=== PATIENT | male | born 1975 | race Caucasian/White ===

== ENCOUNTER 2017-12-26 10:10 | Emergency (ER) | payer MEDICARE, MEDICAID ==
[2017-12-26] MEDS ORDERED: Lorazepam 1 MG TAB ONE (10:48)
--- NOTE | 2017-12-26 11:18 | RAD ---
CHEST 1 VIEW: HISTORY: Tightness. Pain. COMPARISON: 12/28/14. FINDINGS: Normal cardiac silhouette. The lungs and pleural spaces are clear. No pneumothorax or osseous abnor malities. IMPRESSION: No acute cardiopulmonary process. POS: RUBY
[2017-12-26 11:19] LABS: #Basophils 0.1 thou/uL (0.0-0.2); #Eosinphils 0.1 thou/uL (0.0-0.7); #Lymphocytes 2.4 thou/uL (1.20-3.40); #Monocytes 0.9 thou/uL (0.11-0.59); #Neutrophils 4.1 thou/uL (1.40-6.50); %Basophils 1.1 % (0.0-1.0); %Eosinophils 0.9 % (0.0-10.0); %Lymphocytes 31.8 % (21.0-51.0); %Monocytes 11.9 % (0.0-10.0); %Neutrophils 54.3 % (42.0-75.0); Hemoglobin 15.1 g/dL (14.0-18.0); Mean Corpuscular HGB CONC 35.6 g/dL (32.0-36.0); Mean Corpuscular Hemoglobin 31.9 pg (27.0-31.0); Mean Corpuscular Volume 89.5 fL (78.0-98.0); Mean Platelet Volume 7.2 fL (7.4-10.4); Platelet Count 252 thou/uL (130-400); RBC Distribution Width 11.6 % (11.5-14.5); Red Blood Cell (RBC) Count 4.73 mill/uL (4.70-6.10); White Blood Cell (WBC) Count 7.5 thou/uL (4.8-10.8)
[2017-12-26 11:30] LABS: ALT (SGPT) 37 U/L (8-55); AST (SGOT) 19 U/L (5-34); Albumin 4.8 g/dL (3.5-5.0); Alkaline Phosphatase 47 U/L (40-150); Anion Gap 14 mmol/L (10-20); BUN (Urea Nitrogen) 13 mg/dL (8.9-20.6); Bilirubin, Total 0.3 mg/dL (0.2-1.2); Calc. Creatinine Clearance 0 mL/min (70-130); Calcium 10.1 mg/dL (7.8-10.44); Carbon Dioxide 26 mmol/L (22-29); Chloride 102 mmol/L (98-107); Estimated GFR-MDRD 88; Globulin 2.4 g/dL (2.4-3.5); Glucose 106 mg/dL (70-105); Potassium 3.9 mmol/L (3.5-5.1); Protein, Total 7.2 g/dL (6.0-8.3); Sodium 138 mmol/L (136-145)
[2017-12-26 11:33] LABS: CKMB 0.6 ng/mL (0-6.6); Troponin I Less than 0.010 ng/mL (< 0.028)
== END 2017-12-26 12:48 | disposition home or self-care (01) ==
LOC: ERS 10:10
DX: F41.9 Anxiety disorder, unspecified (principal); R00.2 Palpitations; I10 Essential (primary) hypertension; F31.9 Bipolar disorder, unspecified; F17.210 Nicotine dependence, cigarettes, uncomplicated; Z79.899 Other long term (current) drug therapy
CPT/HCPCS: 36415; 71045; 80053; 82553; 84484; 85025; 93005

== ENCOUNTER 2018-07-13 14:20 | Outpatient (CLI) | payer MEDICARE, MEDICAID ==
--- NOTE | 2018-07-13 18:20 | MRI ---
MRI CERVICAL SPINE WITHOUT CONTRAST: 07/13/18 Multiplanar and multisequential imaging cervical spine obtained. INDICATIONS: Neck pain. Strained a muscle/tendon in the neck. FINDINGS: The cervical vertebrae maintain normal height and alignment. Disc spaces are maintained. Very mild de generative spurring from the anterior vertebrae. No significant disc bulge or spondylosis seen at C2- 3 or C3-4. At C4-5, minimal disc bulge flattens the thecal sac and mildly effaces the anterior subarachnoid spac e. At C5-6, minimal disc bulge flattens the thecal sac and minimally effaces the anterior subarachnoid s pace. At C6-7, there is a more prominent diffuse disc bulge more pronounced to the left which severely fla ttens the anterior subarachnoid space. No significant cord impingement although there is left foramin al encroachment. Probable contact with both right and left traversing nerve roots. IMPRESSION: Broad based disc bulge at C6-7 severely effaces the anterior subarachnoid space and encroaches into t he left foramina. POS: TPC
== END 2018-07-13 14:21 | disposition home or self-care (01) ==
LOC: BICMRI 14:20
PROVIDERS: ATTEND Family Medicine
DX: S16.1XXA Strain of muscle, fascia and tendon at neck level, initial encounter (principal); M50.923 Unspecified cervical disc disorder at C6-C7 level
CPT/HCPCS: 72141

== ENCOUNTER 2020-02-23 09:35 | Outpatient (CLI) | payer MEDICARE, MEDICAID ==
--- NOTE | 2020-02-23 09:56 | RAD ---
EXAM: XR Cervical Spine 4 View Min PROVIDED CLINICAL HISTORY: Cervical radiculopathy. Patient states numbness and pain down left arm. COMPARISON: None FINDINGS: C1 to the cervicothoracic junction is seen on the lateral view. Vertebral body heights are within nor mal limits. There is minimal narrowing of the C6-7 intervertebral disc space. Osteophytes are seen involving the lower cervical spine. Straightening of the normal cervical lordotic curvature is presen t. No fracture or subluxation is seen. No abnormal translational motion is seen between the flexion and extension views cervical spine. The prevertebral soft tissues are within normal limits. IMPRESSION: Degenerative changes in the cervical spine greatest involving the lower cervical spine. No fracture o r subluxation is identified.
== END 2020-02-23 09:36 | disposition home or self-care (01) ==
LOC: BICRAD 09:35
PROVIDERS: ATTEND Neurological Surgery
DX: M47.22 Other spondylosis with radiculopathy, cervical region (principal)
CPT/HCPCS: 72050

== ENCOUNTER 2020-03-22 08:44 | Outpatient (CLI) | payer MEDICARE, MEDICAID, OTHER ==
[2020-03-22 17:54] LABS: SARS-CoV-2 MS2 Positive; SARS-CoV-2 N Gene Negative; SARS-CoV-2 S Gene Negative; SARS-CoV-2 by NAA Not Detected (NotDetected); SARS-CoV-2 orf1ab Negative
== END 2020-03-22 08:45 | disposition home or self-care (01) ==
LOC: LABBT 08:44
PROVIDERS: ATTEND Neurological Surgery
DX: M48.02 Spinal stenosis, cervical region (principal); Z20.828 Contact with and (suspected) exposure to other viral communicable diseases
CPT/HCPCS: 87635; U0003

== ENCOUNTER 2020-03-26 09:47 | Day surgery (SDC) | payer MEDICARE, MEDICAID ==
[2020-03-23 12:11] VITALS: BMI 34.8
[2020-03-26] MEDS ORDERED: Midazolam HCl 2 mg/2 ml Vial ONE ×3 (10:16→10:42)
[2020-03-26] MEDS ORDERED: Fentanyl 100 MCG/2 ML VIAL ONE (10:16)
--- NOTE | 2020-03-26 12:49 | MRI ---
MRI CERVICAL SPINE WITHOUT CONTRAST: Date: 03/26/2020 INDICATION: Cervical stenosis and cervical radiculopathy. Comparison made to prior MRI cervical spine dated 07/13/2018. FINDINGS: Cervical vertebra maintain height and alignment. There are degenerative changes noted with spurring f rom the cervical vertebra, most prominent at C4-5, C5-6, and C6-7. Mild loss of disc space at C6-7. T he degenerative disc and vertebral body changes appear stable from the prior study. C2-3: Mild disc bulge and spondylosis with small central annular tear effaces anterior subarachnoid space. No cord impingement or significant central canal stenosis. Stable from prior exam. C3-4: Mild disc bulge and spondylosis efface the anterior subarachnoid space. No significant cord im pingement. Mild left foraminal narrowing due to facet and uncinate hypertrophy. C4-5: Minimal disc bulge with spondylosis effaces the anterior subarachnoid space. No cord impingeme nt. Mild right foraminal narrowing. C5-6: Mild disc bulge and spondylosis efface the anterior subarachnoid space. No cord impingement. N o significant foraminal stenosis. C6-7: There is prominent posterior disc bulge and spondylosis which impinges on the anterior cord. T here is prominent disc protrusion and spondylytic changes paracentrally to the left with associated u ncinate hypertrophy which impinges on the anterior cord to the left of midline and there is associate d left foraminal encroachment and stenosis due to this disc osteophyte complex. Findings at this leve l appear to have progressed when compared to 07/13/2018. IMPRESSION: Disc bulge and spondylosis is most pronounced at C6-7 where these changes impinge on the anterior cor d to the left of midline. Disc osteophyte complex on the left as described above with left foraminal encroachment. POS: AGW
== END 2020-03-26 11:48 | disposition home or self-care (01) ==
LOC: SDC/OP 09:47
PROVIDERS: ATTEND Neurological Surgery
DX: M47.22 Other spondylosis with radiculopathy, cervical region (principal); I10 Essential (primary) hypertension; E78.5 Hyperlipidemia, unspecified; F32.9 Major depressive disorder, single episode, unspecified; J45.909 Unspecified asthma, uncomplicated; F17.210 Nicotine dependence, cigarettes, uncomplicated; Z79.899 Other long term (current) drug therapy
CPT/HCPCS: 72141; J2250; J3010

== ENCOUNTER 2020-06-26 06:47 | Outpatient (CLI) | payer MEDICARE, MEDICAID ==
[2020-06-26 11:30] LABS: Hemoglobin 16.3 g/dL (14.0-18.0); Mean Corpuscular HGB CONC 34.2 G/DL (32.0-36.0); Mean Corpuscular Hemoglobin 29.9 PG (27.0-33.0); Mean Corpuscular Volume 87.4 fl (80.0-100.0); Mean Platelet Volume 9.9 fl (7.4-10.4); Platelet Count 303 10x3/uL (130-400); RBC Distribution Width 12.6 % (11.5-14.5); Red Blood Cell (RBC) Count 5.46 10x6/uL (4.40-5.80); White Blood Cell (WBC) Count 9.7 10x3/uL (4.5-11.0)
[2020-06-26 11:48] LABS: PTT 27.1 sec (22.0-33.0); Prothrombin Time 10.7 sec (9.5-12.1)
[2020-06-26 18:57] LABS: SARS-CoV-2 MS2 Positive; SARS-CoV-2 N Gene Negative; SARS-CoV-2 S Gene Negative; SARS-CoV-2 by NAA Not Detected (NotDetected); SARS-CoV-2 orf1ab Negative
== END 2020-06-26 06:48 | disposition home or self-care (01) ==
LOC: LABBT 06:47
PROVIDERS: ATTEND Neurological Surgery
DX: Z01.812 Encounter for preprocedural laboratory examination (principal); Z20.822 Contact with and (suspected) exposure to COVID-19; M50.123 Cervical disc disorder at C6-C7 level with radiculopathy
CPT/HCPCS: 85027; 85610; 85730; U0003; 87635

== ENCOUNTER 2020-06-29 06:03 | Day surgery (SDC) | payer MEDICARE, MEDICAID ==
[2020-06-27 12:05] VITALS: BMI 33.5
--- NOTE | 2020-06-27 12:39 | HP ---
REASON FOR HISTORY AND PHYSICAL: Surgery on 06/29/2020, case #[id number]. HISTORY OF PRESENT ILLNESS: Mr. Blevins is a 44-year-old male with 6 months of neck and left tingling sensation in his arms and hands. Pain and paresthesias radiate into his left shoulder, lateral arm, pointer and middle finger. Pain is always in his left shoulder. Reports dropping objects in the left hand quite frequently. He denies any gait instabilities. He denies any triceps weakness. He has tried physical therapy, injections, medications with no lasting relief. Denies any bladder or bowel dysfunction. REVIEW OF SYSTEMS: CONSTITUTIONAL: Denies fever or chills. ENT: Denies change in vision or hearing. CARDIAC: Denies chest pain, shortness of breath, or diaphoresis. PULMONARY: Denies shortness of breath, cough, or hemoptysis. GI: Denies abdominal pain, nausea, vomiting, diarrhea, or change in stool formation and consistency. : Denies trouble with urination, frequency of urination, or bloody urine. SKIN: Denies skin rash, bruising, bleeding, or skin masses. MUSCULOSKELETAL: As per history of present illness. NEUROLOGICAL: As per history of present illness. PSYCHOLOGICAL: Denies anxiety, depression, or behavior changes. PAST MEDICAL HISTORY: 1. Asthma. 2. Hyperlipidemia. 3. Depression. 4. Hypertension. PAST SURGICAL HISTORY: 1. Lumbar surgery in 2007, Dr. Bernal. 2. Broken left arm with pins in 1985. HOSPITALIZATIONS: As above surgeries. Psych admit in 2014. FAMILY HISTORY: Father , diagnosed with hypertension and stroke. Mother , diagnosed with none. SOCIAL HISTORY: Smoker, smokes 1 pack per day. Denies alcohol or illicit drugs. MEDICATIONS: 1. Seroquel 400 mg. 2. Lisinopril/hydrochlorothiazide 20-12.5 mg. 3. Atorvastatin 20 mg. 4. Carbamazepine 200 mg. 5. Temazepam 30 mg. 6. Buspirone 10 mg. ALLERGIES: NO KNOWN DRUG ALLERGIES. PHYSICAL EXAMINATION: VITAL SIGNS: Weight 220 pounds, height 5 feet 11 inches, BMI 30.68. HEENT: Pupils are equal. Extraocular movements are intact. NECK: Soft, supple. No masses are noted. Range of motion is intact and slightly painful. NEUROLOGIC: Awake, alert, and oriented x3. Memory, attention, fund of knowledge are normal. Cranial nerves are grossly intact. Gait and station are normal. Toe, heel, and tandem walking are normal. Motor exam; normal strength in the deltoids, biceps, triceps, wrist extensors, and interossei. Finger extension is weak on the left C7. Sensory exam, loss of left C7 sensation compared to the right. Reflex exam; absent left triceps jerk. IMAGING DATA: MRI of the C-spine indicates a right foraminal disease with moderate C4-C5, C5-C6. Left C6-C7 disk with foraminal stenosis and a C7 root compression. X-ray of the C-spine, flexion-extension stable. ASSESSMENT: Cervical disk disorder at C6-C7 level with radiculopathy. PLAN: 1. ACDF at C6-C7. 2. Preop labs; CBC, PT, PTT, COVID-19 testing. 3. Clearance. 4. Quit nicotine for 1 month prior to surgery. INFORMED CONSENT: We discussed the indications, risks, benefits, alternatives, and expected results from surgery. The risks discussed included, but were not limited to, bleeding, infection, CSF leak, nerve damage, weakness, swallowing trouble, feeding tube placement, tracheal injury, esophageal injury, vocal cord injury, spinal cord injury, incontinence, paralysis, ventilator dependency, wheelchair dependency, stroke, loss of vision, carotid artery injury, jugular vein injury, hardware misplacement, cardiopulmonary complications of anesthesia or . Long-term complications discussed included, but were not limited to, hardware failure and degeneration of surrounding disk. He understands the risks and is willing to proceed. Job ID: [id number]
[2020-06-29] MEDS ORDERED: Thrombin 5000 UNITS/5 ML VIAL ONE (06:06)
[2020-06-29] MEDS ORDERED: Midazolam HCl 2 mg/2 ml Vial ONE (06:41)
[2020-06-29] MEDS ORDERED: Fentanyl 100 MCG/2 ML VIAL ONE ×4 (06:42→11:07)
[2020-06-29] MEDS ORDERED: Ketamine 50 MG/ML (10ML VIAL) ONE (08:08)
[2020-06-29] MEDS ORDERED: SUGAMMADEX SODIUM 200 MG/2 ML VIAL ONE (09:07)
[2020-06-29] MEDS ORDERED: Lidocaine 1% PF 5 ML VIAL ONE (09:38)
[2020-06-29] MEDS ORDERED: Ketorolac Tromethamine 30 MG/ML VIAL ONE (09:38)
[2020-06-29] MEDS ORDERED: Dexamethasone 20 MG/5 ML VIAL ONE (09:38)
[2020-06-29] MEDS ORDERED: PHENYLEPHRINE-NS 100 MCG/ML 10 ML SYRINGE ONE (09:38)
[2020-06-29] MEDS ORDERED: Ondansetron PF 4 MG/2 ML Vial ONE (09:38)
[2020-06-29] MEDS ORDERED: Rocuronium Bromide 10 MG/ML (10ML VIAL) ONE (09:38)
[2020-06-29] MEDS ORDERED: Esmolol 100 MG/10 ML VIAL ONE (09:38)
[2020-06-29] MEDS ORDERED: PROPOFOL 200 MG/20 ML VIAL ONE (09:38)
[2020-06-29] MEDS ORDERED: Tamsulosin HCl 0.4 MG CAP ONE (10:00)
[2020-06-29] MEDS ORDERED: HYDROmorphone 0.5 MG/0.5 ML SYRINGE ONE ×4 (10:04→10:52)
--- NOTE | 2020-06-29 11:01 | OP ---
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 PREOPERATIVE DIAGNOSIS: Cervical intervertebral disk disease at C6-C7 with left C7 radiculopathy. POSTOPERATIVE DIAGNOSIS: Cervical intervertebral disk disease at C6-C7 with left C7 radiculopathy. PROCEDURES PERFORMED: 1. Anterior cervical diskectomy, C6-C7. 2. Intervertebral arthrodesis, C6-C7. 3. Placement of intervertebral biomechanical device, C6-C7 (separate from plate). 4. Anterior cervical plating, C6 and C7. 5. Local morselized autograft, morselized allograft. 6. Operating microscope. PREOPERATIVE MEDICATION: Ancef 2 g IV. DRAIN NUMBER: Zero. DRAIN TYPE: None. DESCRIPTION OF PROCEDURE: The patient was brought to the operating room. General endotracheal anesthesia was induced. The patient was positioned carefully with his head supported by a donut-shaped headrest. He was supine for the procedure. A lateral fluoro radiograph was used to plan our incision. The right side of the neck was sterilely prepped and draped. We opened our planned incision with a 10 blade knife and controlled bleeding with bipolar cautery. We dissected sharply to the platysma. We cut this muscle in line with our incision. We continued our dissection medial to the sternocleidomastoid and lateral to the trachea and esophagus. We arrived to the prevertebral space. Due to high-riding shoulders, we placed a marker at C4-C5. We took a lateral fluoro radiograph and then counted down two interspaces to the C6-C7 interspace. We elevated the longus colli muscles off the anterior surface of C6 and C7, and then placed a lateral retractor under the longus colli muscles. We placed distraction pins at C6 and C7, and distracted across the intervening interspace. We used a 15 blade knife to incise interspace and we removed disk contents using curettes and rongeurs. The operating microscope was brought into the field. Under microscopic magnification and using microsurgical techniques, we removed the remainder of the intervertebral disk. We accessed the ventral epidural space with a microcurette. We used Kerrison rongeurs to remove the posterior longitudinal ligament and posterior osteophytes across the entire interspace from one neural foramen to the other. There was a very good dural decompression throughout. We turned our attention to arthrodesis. We prepared the endplates for grafting with curettes. Using a bone rasp, we measured the height of the interspace to 8 mm. An 8-mm PEEK intervertebral graft was brought into the field. Osteophytes removed during our decompression were cleaned of their soft tissue attachments, morcellized, and added into demineralized bone matrix as our fusion substrate. The substrate was packed in the center of the PEEK device and that device was advanced into the interspace under radiographic guidance to the appropriate depth. A separate anterior cervical plate was brought into the field. We drilled ship's pilot holes through the plate into the vertebral bodies at C6-C7 and affixed the plate using 14-mm screws. We used fixed angle screws at C7 and variable angle screws at C6. We engaged the locking mechanism over each of the 4 screws. AP and lateral fluoro radiographs confirmed adequate position of our instrumentation. We irrigated copiously with bacitracin irrigation. We closed the wound in anatomical layers and we applied a sterile dressing. This was a clean case, no contamination. Job ID: [id number]
[2020-06-29] MEDS ORDERED: traMADol HCl 50 MG TAB ONE (13:16)
== END 2020-06-29 13:48 | disposition home or self-care (01) ==
LOC: SDC 06:03
PROVIDERS: ATTEND Neurological Surgery
PROC: 0RG10A0 Fusion of Cervical Vertebral Joint with Interbody Fusion Device, Anterior Approach, Anterior Column, Open Approach (ICD-10-PCS; principal; 2020-06-29)
PROC: 0RT30ZZ Resection of Cervical Vertebral Disc, Open Approach (ICD-10-PCS; 2020-06-29)
DX: M50.123 Cervical disc disorder at C6-C7 level with radiculopathy (principal); M48.02 Spinal stenosis, cervical region; J45.909 Unspecified asthma, uncomplicated; E78.5 Hyperlipidemia, unspecified; F32.9 Major depressive disorder, single episode, unspecified; I10 Essential (primary) hypertension; F17.210 Nicotine dependence, cigarettes, uncomplicated; Z79.899 Other long term (current) drug therapy
CPT/HCPCS: 20930; 20936; 22551; 22853; 76000; C1713 ×3; C1776 ×2; J0690; J1100; J1170; J1885; J2250; J2405; J2704; J3010; J3490

== ENCOUNTER 2024-03-11 12:45 | Outpatient (CLI) | payer OTHER | END 2024-03-11 12:46 | disposition home or self-care (01) | LOC: BICRAD 12:45 | PROVIDERS: ATTEND Nurse Practitioner Family | DX: M25.511 Pain in right shoulder (principal) ==

== ENCOUNTER 2024-04-25 11:04 | Day surgery (SDC) | payer OTHER, MEDICAID ==
[2024-04-22 15:12] VITALS: BMI 33.5
[2024-04-25] MEDS ORDERED: PROPOFOL 20 ML ONE (12:56)
[2024-04-25] MEDS ORDERED: Lidocaine 1% PF 5 ML VIAL ONE (13:05)
[2024-04-25] MEDS ORDERED: Midazolam HCl 2 mg/2 ml Vial ONE (13:08)
== END 2024-04-25 14:45 | disposition home or self-care (01) ==
LOC: SDC/OP 11:04
PROVIDERS: ATTEND Nurse Practitioner Family
DX: M25.511 Pain in right shoulder (principal); R29.898 Other symptoms and signs involving the musculoskeletal system; F31.9 Bipolar disorder, unspecified; J45.909 Unspecified asthma, uncomplicated; I10 Essential (primary) hypertension; E78.5 Hyperlipidemia, unspecified; Z98.890 Other specified postprocedural states; F17.200 Nicotine dependence, unspecified, uncomplicated; Z79.51 Long term (current) use of inhaled steroids
CPT/HCPCS: 73221; J2250; J2704